=== PATIENT | male | born 1980 | race Caucasian/White ===

== ENCOUNTER 2017-10-28 20:11 | Emergency (ER) | payer OTHER ==
[~2017-10-28] VITALS: Ht 177.8 cm; Wt 115.7 kg
[2017-10-28] MEDS ORDERED: LEVO25TA2 PO (20:24)
[2017-10-28] MEDS ORDERED: OMEP20TA20 PO (20:24)
--- NOTE | 2017-10-28 20:29 | NUR ---
Dr. Willson at bedside for MSE.
[2017-10-28] MEDS ORDERED: MORPHINE SULFATE 2 MG/1 ML DISP.SYRIN IV ONE (20:45)
[2017-10-28] MEDS ORDERED: IV NORMAL SALINE 1000 ML BAG IV ONE (20:45)
[2017-10-28] MEDS ORDERED: ONDANSETRON 4 MG/2 ML VIAL IV ONE (20:45)
[2017-10-28] MEDS ORDERED: ONDANSETRON 4 MG/2 ML VIAL ONE (20:52)
[2017-10-28] MEDS ORDERED: MORPHINE SULFATE 4 MG/1 ML DISP.SYRIN ONE (20:52)
[2017-10-28 20:53] LABS: BASOPHILS % (AUTO) 0.4 % (0.0-2.0); EOSINOPHILS # (AUTO) 0.1 K/uL (0.0-0.7); EOSINOPHILS % (AUTO) 0.8 % (0.0-7.0); HEMATOCRIT 43.6 % (36.7-47.1); HEMOGLOBIN 14.9 g/dL (12.5-16.3); LYMPHOCYTES # (AUTO) 1.5 K/uL (20.0-40.0); LYMPHOCYTES % (AUTO) 14.1 % (20.5-51.5); MEAN CORPUSCULAR HEMOGLOBIN 28.8 uug (23.8-33.4); MEAN CORPUSCULAR HGB CONC 34 g/dL (32.5-36.3); MEAN CORPUSCULAR VOLUME 84.2 fL (73.0-96.2); MONOCYTES # (AUTO) 0.9 K/uL (2.0-10.0); MONOCYTES % (AUTO) 8.6 % (0.0-11.0); NEUTROPHILS # (AUTO) 8.2 K/uL (1.8-8.9); NEUTROPHILS % (AUTO) 76.1 % (38.5-71.5); PLATELET COUNT (AUTO) 253 K/uL (152-348); RED BLOOD CELL COUNT(AUTO) 5.18 MIL/uL (4.06-5.63); WHITE BLOOD COUNT (AUTO) 10.8 K/uL (3.6-10.2)
[2017-10-28 21:03] LABS: CREATININE 1.1 mg/dL (0.6-1.3)
[2017-10-28 21:05] LABS: *BILIRUBIN,URIN NEGATIVE (NEGATIVE); *BLOOD, URINE 1+ (NEGATIVE); *CLARITY,URINE CLEAR (CLEAR); *COLOR,URINE YELLOW (YELLOW); *KETONES,URINE NEGATIVE (NEGATIVE); *PROTEIN,URINE NEGATIVE (NEGATIVE); *UROBILINOGEN,URINE 0.2 E.U./dl (NORMAL); LEUKOCYTE ESTERASE ,URINE NEGATIVE (NEGATIVE); NITRITE, URINE NEGATIVE (NEGATIVE); UGLUCOSE NEGATIVE (NEGATIVE)
[2017-10-28 21:09] LABS: BACTERIA,URINE NONE SEEN /HPF (NONE SEEN); BILIRUBIN,DIRECT 0.1 mg/dL (0.0-0.2); BILIRUBIN,TOTAL 0.6 mg/dL (0.2-1.0); SQUAMOUS EPITHELIAL CELL,UR NONE SEEN /HPF (NONE SEEN); TOTAL PROTEIN, SERUM 7.6 g/dL (6.4-8.2); WBC,URINE 0-3 /HPF (0-3)
[2017-10-28] MEDS ORDERED: IV NORMAL SALINE 250 ML IV ONE (21:24)
[2017-10-28] MEDS ORDERED: IOHEXOL 300MG/ML 100 ML INFUS..BTL ONE (21:24)
[2017-10-28] MEDS ORDERED: NORMAL SALINE FLUSH 10 ML DISP.SYRIN ONE (21:24)
[2017-10-28] MEDS ORDERED: SWABABLE VALVE TRANSFER SET EA MC ONE (21:24)
[2017-10-28] MEDS ORDERED: CIPROFLOXACIN HCL 250 MG TABLET PO ONE (22:45)
[2017-10-28] MEDS ORDERED: METRONIDAZOLE 500 MG/NS 100 ML PIGGYBACK IV ONE (22:45)
[2017-10-28] MEDS ORDERED: CIPROFLOXACIN HCL 250 MG TABLET ONE (22:57)
[2017-10-28] MEDS ORDERED: METRONIDAZOLE 500 MG TABLET ONE (22:57)
--- NOTE | 2017-10-28 22:57 | NUR ---
Patient discharged to home in stable conditon. Written and verbal after care instructions given. Patient verbalizes understanding of instructions.
[2017-10-28 22:58] VITALS: BP 134/98
[2017-10-28] MEDS ORDERED: METRONIDAZOLE 500 MG TABLET PO ONE (23:00)
== END 2017-10-28 22:58 | disposition home or self-care (01) ==
LOC: ER 20:15
DX: K57.92 Diverticulitis of intestine, part unspecified, without perforation or abscess without bleeding (principal); K21.9 Gastro-esophageal reflux disease without esophagitis; E03.9 Hypothyroidism, unspecified
CPT/HCPCS: 36415; 74177; 80048; 80076; 81001; 83605; 83690; 85025; 85730; 87040 ×2; 87086; 99285; A4663; J3490; J7030; J7050; Q9967; J2270; J2405